=== PATIENT | female | born 1960 | race Caucasian/White ===

== ENCOUNTER → 2022-08-06 | Outpatient (CLI) | payer OTHER ==
[~2022-08-06] MED LIST: ACHD5005 PO; CYCL10TA25 PO; PRD20T PO
--- NOTE | 2022-08-06 12:21 | Diagnostic Imaging Report ---
PROCEDURE: US Gallbladder. INDICATION: RIGHT UPPER QUADRANT ABDOMINAL PAIN TECHNIQUE: Multiple grayscale sonographic images were obtained of the right upper quadrant of the abdomen. CORRELATION STUDY: None FINDINGS: LIVER: There is uniform echotexture within the visualized portions of the liver. The main portal vein is patent and with normal direction of flow. Liver length 17.3 cm. GALLBLADDER: Multiple small shadowing gallstones. These were reported as mobile. Gallbladder wall thickness within normal limits at 0.2 cm. COMMON BILE DUCT: Nondilated at 0.2 cm. PANCREAS: Visualized portions appearing unremarkable. AORTA/IVC: Not well visualized. RIGHT KIDNEY: 11.4 x 3.8 x 4 cm. Very slight prominent appearance about the renal pelvis without overt hydronephrosis. OTHER: Sonographic Pedraza sign negative. No right upper quadrant ascites. IMPRESSION: 1. Multiple small gallstones. No current ultrasound findings to suggest acute cholecystitis. Dictated by: Dictated on workstation # [id number]
== END ==
LOC: RAD 09:12
PROVIDERS: ATTEND Internal Medicine
DX: K80.20 Calculus of gallbladder without cholecystitis without obstruction (principal); K21.9 Gastro-esophageal reflux disease without esophagitis; M99.02 Segmental and somatic dysfunction of thoracic region; R09.89 Other specified symptoms and signs involving the circulatory and respiratory systems
CPT/HCPCS: 76705

== ENCOUNTER 2022-09-01 13:00 | Emergency (ER) | payer OTHER ==
--- NOTE | 2022-09-01 13:34 | ED General ---
General Chief Complaint: General Problems/Pain Stated Complaint: UPPER BACK PAIN/SOA/FATIGUE Nursing Triage Note: PT AMB TO [facility] 9 WITH WITH C/O UPPER BACK PAIN AND L SHOULDER PAIN ON AND OFF FOR 2 MONTHS. PT WAS TOLD BY PCP THAT IT COULD BE HER GB. PT HAS PRE OP APPT FRIDAY WITH [facility]. PT DENIES ANYTHING NEW OR DIFFERENT TODAY Source of Information: Patient Exam Limitations: No Limitations History of Present Illness Date Seen by Provider: September 01, 2022 Time Seen by Provider: 13:10 Initial Comments 62-year-old female presents to the ED with complaints of left upper back pain which has been intermittent for the last few months. She states that it started again while in [place] approximately 2 hours ago. She states the pain has now dissipated. Denies radiation of this pain to her chest, arm, jaw. She reports some shortness of air when the pain occurs. States the pain feels like a "popping pain." She also reports that she has been belching a lot, she was told that this is due to her gallbladder needing to be removed. She has a preop appointment this Friday to get her gallbladder removed. She denies fevers, chest pain, abdominal pain, nausea, vomiting. Past medical history includes arthritis and hypertension. She takes metoprolol in the morning and amlodipine at night. She took her metoprolol this morning. Patient's blood pressure is very high upon arrival. She denies headache, dizziness, blurred vision. Juanita flowers reports that her friends are concerned that this pain in her back may be her heart and that is why she is here. Patient seems to be very anxious that this could be her heart. Allergies and Home Medications Allergies Coded Allergies: No Known Drug Allergies (Unverified , 11/08/15) Patient Home Medication List Home Medication List Reviewed: Yes Cyclobenzaprine HCl (Cyclobenzaprine HCl) 10 Mg Tablet, 10 MG PO Q8H PRN for SPASMS Prescribed by: JANNA DEL TORO on 11/08/152258 Hydrocodone Bit/Acetaminophen (Lortab 5 Mg Tablet) 1 Each Tablet, 1 EACH PO Q4H PRN for PAIN Prescribed by: JANNA DEL TORO on 11/08/152258 Prednisone (Prednisone) 20 Mg Tab, 40 MG PO DAILY Prescribed by: JANNA DEL TORO on 11/08/152258 Review of Systems Review of Systems Constitutional: see HPI Past Zshphhu-Vbwjbg-Tdnjgo Hx Patient Social History Tobacco Use?: No Substance use?: No Alcohol Use?: No Pt feels they are or have been: No Immunizations Up To Date First/Initial COVID19 Vaccinat: YES Second COVID19 Vaccination [place]: YES Past Medical History Surgery/Hospitalization HX: HTN BILAT KNEE REPLACEMENTS, D&C Hypertension Reproductive Disorders: No Back Injury Physical Exam Vital Signs Vital Signs - First Documented 09/01/22 13:09 Temp 36.6 Pulse 73 Resp 20 B/P (MAP) 199/101 (133) Pulse Ox 99 O2 Delivery Room Air Capillary Refill : Height, Weight, BMI Height: 5'5" Weight: 174lbs. oz. 78.812169nn; BMI Method:Stated General Appearance: No Apparent Distress, WD/WN Neck: Non Tender, Supple Respiratory: Lungs Clear, Normal Breath Sounds, No Accessory Muscle Use, No Respiratory Distress Cardiovascular: Regular Rate, Rhythm Back: Normal Inspection, No Vertebral Tenderness, Other (Patient able to pinpoint spot of pain, at first she said pain was worse with palpation, then stated she was not sure.) Extremity: Normal Inspection, Normal Range of Motion Neurologic/Psychiatric: Alert, Normal Mood/Affect Skin: Normal Color, Warm/Dry Progress/Results/Core Measures Suspected Sepsis SIRS Temperature: Pulse: 73 Respiratory Rate: 20 Laboratory Tests 09/01/22 13:31: White Blood Count 6.2 Blood Pressure 199 /101 Mean: 133 Laboratory Tests 09/01/22 13:31: Creatinine 0.77, Platelet Count 269, Total Bilirubin 0.5 Results/Orders Lab Results Laboratory Tests Test 09/01/22 13:31 09/01/22 14:22 Range/Units White Blood Count 6.2 4.3-11.0 10^3/uL Red Blood Count 4.47 3.80-5.11 10^6/uL Hemoglobin 13.9 11.5-16.0 g/dL Hematocrit 41 35-52 % Mean Corpuscular Volume 93 80-99 fL Mean Corpuscular Hemoglobin 31 25-34 pg Mean Corpuscular Hemoglobin Concent 34 32-36 g/dL Red Cell Distribution Width 13.0 10.0-14.5 % Platelet Count 269 130-400 10^3/uL Mean Platelet Volume 9.0 9.0-12.2 fL Immature Granulocyte % (Auto) 0 % Neutrophils (%) (Auto) 62 42-75 % Lymphocytes (%) (Auto) 27 12-44 % Monocytes (%) (Auto) 7 0-12 % Eosinophils (%) (Auto) 4 0-10 % Basophils (%) (Auto) 1 0-10 % Neutrophils # (Auto) 3.8 1.8-7.8 X 10^3 Lymphocytes # (Auto) 1.6 1.0-4.0 X 10^3 Monocytes # (Auto) 0.4 0.0-1.0 X 10^3 Eosinophils # (Auto) 0.2 0.0-0.3 10^3/uL Basophils # (Auto) 0.0 0.0-0.1 10^3/uL Immature Granulocyte # (Auto) 0.0 0.0-0.1 10^3/uL Sodium Level 138 135-145 MMOL/L Potassium Level 3.9 3.6-5.0 MMOL/L Chloride Level 105 98-107 MMOL/L Carbon Dioxide Level 20 L 21-32 MMOL/L Anion Gap 13 5-14 MMOL/L Blood Urea Nitrogen 20 H 7-18 MG/DL Creatinine 0.77 0.60-1.30 MG/DL Estimat Glomerular Filtration Rate 87 BUN/Creatinine Ratio 26 Glucose Level 105 70-105 MG/DL Calcium Level 9.5 8.5-10.1 MG/DL Corrected Calcium 9.1 8.5-10.1 MG/DL Magnesium Level 1.9 1.6-2.4 MG/DL Total Bilirubin 0.5 0.1-1.0 MG/DL Aspartate Amino Transf (AST/SGOT) 27 5-34 U/L Alanine Aminotransferase (ALT/SGPT) 40 0-55 U/L Alkaline Phosphatase 89 40-136 U/L Troponin I < 0.028 < 0.028 <0.028 NG/ML Total Protein 7.6 6.4-8.2 GM/DL Albumin 4.5 3.2-4.5 GM/DL Amylase Level 54 25-125 U/L Lipase 30 8-78 U/L My Antionette Adan - JONAH MTZ FAMILY SERVICES SPECIALIST Comprehensive Metabolic Panel (09/01/22 13:25) Lipase (09/01/22 13:25) Amylase (09/01/22 13:25) Ed Iv/Invasive Line Start (09/01/22 13:25) Cbc With Automated Diff (09/01/22 13:25) Magnesium (09/01/22 13:25) Chest 1 View, Ap/Pa Only (09/01/22 13:25) Ekg Tracing (09/01/22 13:25) Troponin I [place] (09/01/22 13:25) Troponin I [place] (09/01/22 14:15) Vital Signs/I&O 09/01/22 09/01/22 13:09 15:13 Temp 36.6 Pulse 73 68 Resp 20 16 B/P (MAP) 199/101 (133) 147/85 Pulse Ox 99 97 O2 Delivery Room Air Room Air Capillary Refill : Blood Pressure Mean: 133 Progress Note : Progress Note Patient seen and evaluated, resting comfortably on bed, no acute distress. Based on exam and symptoms, cardiac work-up initiated including CBC, CMP, magnesium, troponin, amylase, lipase, chest x-ray, EKG. Labs and x-ray reviewed. CBC grossly normal. CMP shows slightly decreased CO2 20, BUN slightly elevated 20, normal creatinine 0.77, normal GFR 87. Troponin negative x2. Amylase and lipase normal. Chest x-ray shows no acute finding. Results discussed with patient. Patient felt reassured. Discharge instructions and return precautions provided. ECG Initial ECG Impression Date: September 01, 2022 Initial ECG Impression Time: 13:48 Initial ECG Rate: 66 Initial ECG Rhythm: Normal Sinus Initial ECG Intervals: Normal Initial ECG Impression: Normal Initial ECG Comparisson: No Previous ECG Available Diagnostic Imaging Diagonstic Imaging: Xray Plain Films/CT/US/NM/MRI: chest Comments [facility], [place] NAME: HEMALATHA MCKOY [facility] REC#: [id number] PT STATUS: REG ER : 1960 PHYSICIAN: JONAH MTZ APRN ADMIT DATE: 09/01/22/ER Draft Date of Exam:09/01/22 CHEST 1 VIEW, AP/PA ONLY EXAMINATION: Chest 1 view HISTORY: Chest pain COMPARISON: None available. FINDINGS: The lungs are clear without edema or pneumonia. No pleural effusion or pneumothorax. Heart size is normal. IMPRESSION: 1. Clear lungs. Dictated on workstation # [id number] Dict: 09/01/22 1405 Trans: 09/01/22 1406 [facility] [id number] Interpreted by: CARL HOLLY MD Electronically signed by: Departure Impression Primary Impression: Upper back pain on left side Disposition: HOME, SELF-CARE Condition: Stable Departure-Patient Inst. Decision time for Depature: 15:08 Referrals: KETTY ENRIQUEZ DO (PCP/Family) Primary Care Physician Patient Instructions: Upper Back Pain Add. Discharge Instructions: You may try 800 mg of ibuprofen every 8 hours with food as needed for pain. You may also take 1000 mg of Tylenol every 8 hours as needed for pain. Follow-up with your primary care provider. Return for chest pain, shortness of breath, or any other new, concerning, or worsening symptoms. All discharge instructions reviewed with patient and/or family. Voiced understanding. JONAH MTZ APRN September 01, 2022 13:34
[2022-09-01 13:47] LABS: BASOPHILS % (AUTO) 1 % (0-10); EOSINOPHILS # (AUTO) 0.2 10^3/uL (0.0-0.3); EOSINOPHILS % (AUTO) 4 % (0-10); HEMATOCRIT 41 % (35-52); HEMOGLOBIN 13.9 g/dL (11.5-16.0); LYMPHOCYTES # (AUTO) 1.6 X 10^3 (1.0-4.0); LYMPHOCYTES % (AUTO) 27 % (12-44); MEAN CORPUSCULAR HEMOGLOBIN 31 pg (25-34); MEAN CORPUSCULAR HGB CONC 34 g/dL (32-36); MEAN CORPUSCULAR VOLUME 93 fL (80-99); MONOCYTES # (AUTO) 0.4 X 10^3 (0.0-1.0); MONOCYTES % (AUTO) 7 % (0-12); NEUTROPHILS # (AUTO) 3.8 X 10^3 (1.8-7.8); NEUTROPHILS % (AUTO) 62 % (42-75); PLATELET COUNT 269 10^3/uL (130-400); WHITE BLOOD COUNT 6.2 10^3/uL (4.3-11.0)
[2022-09-01 13:55] LABS: ALBUMIN 4.5 GM/DL (3.2-4.5)
[2022-09-01 13:56] LABS: POTASSIUM 3.9 MMOL/L (3.6-5.0)
[2022-09-01 13:57] LABS: CALCIUM 9.5 MG/DL (8.5-10.1)
[2022-09-01 13:58] LABS: TOTAL PROTEIN 7.6 GM/DL (6.4-8.2)
[2022-09-01 14:00] LABS: BILIRUBIN,TOTAL 0.5 MG/DL (0.1-1.0)
[2022-09-01 14:02] LABS: CREATININE SERUM 0.77 MG/DL (0.60-1.30)
[2022-09-01 14:04] LABS: MAGNESIUM 1.9 MG/DL (1.6-2.4)
--- NOTE | 2022-09-01 14:06 | Diagnostic Imaging Report ---
EXAMINATION: Chest 1 view HISTORY: Chest pain COMPARISON: None available. FINDINGS: The lungs are clear without edema or pneumonia. No pleural effusion or pneumothorax. Heart size is normal. IMPRESSION: 1. Clear lungs. Dictated by: Dictated on workstation # [id number]
[2022-09-01 15:13] VITALS: BP 147/85
== END 2022-09-01 15:13 | disposition home or self-care (01) ==
LOC: EDUNIT# 13:00 → ER 13:05
DX: M54.6 Pain in thoracic spine (principal); I10 Essential (primary) hypertension; Z79.899 Other long term (current) drug therapy
CPT/HCPCS: 36415; 71045; 80053; 82150; 83690; 83735; 84484; 85025; 93005